=== PATIENT | male | born 1935 | race Caucasian/White ===

== ENCOUNTER 2017-03-26 10:47 | Inpatient (IN) | payer MEDICARE, OTHER ==
[2017-03-26 11:17] LABS: WHITE BLOOD COUNT 6.8 10^3/ul (4.8-10.8)
[2017-03-26 11:17] LABS: ABNORMAL IP MESSAGE 1; HEMATOCRIT 35.2 % (42.0-52.0); HEMOGLOBIN 10.4 g/dl (14.0-18.0); MEAN CORPUSCULAR HEMOGLOBIN 29.4 pg (29.0-33.0); MEAN CORPUSCULAR HGB CONC 29.5 g/dl (32.0-37.0); MEAN CORPUSCULAR VOLUME 99.4 fl (82.0-101.0); MEAN PLATELET VOLUME 10.8 fl (7.4-10.4); PLATELET COUNT 201 10^3/UL (140-415); POSITIVE DIFF @See below; RED BLOOD COUNT 3.54 10^6/ul (4.70-6.10); RED CELL DISTRIBUTION WIDTH 16.3 % (11.5-14.5)
[2017-03-26 11:28] LABS: ADD MAN DIFF? YES
[2017-03-26 11:38] LABS: INR 1.09; PROTIME 14.3 Sec (11.9-14.9); PT RATIO 1.1
[2017-03-26 11:39] LABS: LACTIC ACID 1.9 mmol/L (0.5-2.0)
[2017-03-26 11:42] LABS: ALANINE AMINOTRANSFERASE 25 IU/L (13-69); ALBUMIN 3.7 g/dl (3.3-4.9); ALBUMIN/GLOBULIN RATIO 0.92; ALKALINE PHOSPHATASE 65 IU/L (42-121); ANION GAP 19 (8-16); ASPARTATE AMINO TRANSFERASE 26 IU/L (15-46); BLOOD UREA NITROGEN 57 mg/dl (7-20); CALCIUM 9.6 mg/dl (8.4-10.2); CARBON DIOXIDE 28 mmol/L (21-31); CHLORIDE 106 mmol/L (97-110); CREATININE 3.76 mg/dl (0.61-1.24); GLUCOSE 124 mg/dl (70-220); SODIUM 148 mmol/L (135-144); TOTAL PROTEIN 7.7 g/dl (6.1-8.1)
[2017-03-26] MEDS: SOD CHLORIDE 0.9% 500 ML IV ×2 (11:54→22:40)
[2017-03-26] MEDS: PIPER-TAZO 3.375 GM IV (PMX) 100 ML IVPB (11:59)
[2017-03-26 12:00] LABS: TROPONIN-I < 0.012 ng/ml (0.00-0.12)
[2017-03-26] MEDS ORDERED: ONDANSETRON 4 MG INJ IV ×2 (12:30→15:00)
[2017-03-26] MEDS ORDERED: ACETAMINOPHEN 325 MG TAB PO (12:30)
[2017-03-26] MEDS: VANCOMYCIN 1 GM (PMX) 250 ML IVPB (12:33)
[2017-03-26 12:49] LABS: ANISOCYTOSIS 1+ (0-0); BAND NEUTROPHILS #M 1.9 10^3/ul (0.0-0.6); BAND NEUTROPHILS % (M) 28 % (0-4); ERYTHROBLAST% (NRBC) (M) 1 % (0-0); GIANT THROMBO% (M) 1 % (0-0); LYMPHOCYTES #M 1.3 10^3/ul (0.8-2.9); LYMPHOCYTES % (M) 20 % (15-51); METAMYELOCYTES #M 0.2 10^3/ul (0.0-0.0); METAMYELOCYTES %M 3 % (0-0); MONOCYTE #M 0.2 10^3/ul (0.3-0.9); MONOCYTES % (M) 4 % (0-11); MYELOCYTES #M 0.1 10^3/ul (0.0-0.0); MYELOCYTES % (M) 2 % (0-0); PLATELET ESTIMATE NORMAL; POLYCHROMASIA 2+ (0-0); ROULEAU 1+ (0-0); SEG NEUT #M 3.1 10^3/ul (1.6-7.5); SEGMENTED NEUTROPHILS (M) % 44 % (39-77); SMUDGE%M 1 % (0-0)
[2017-03-26] MEDS ORDERED: VANCOMYCIN IV PER PHARMACY XX (15:00)
[2017-03-26] MEDS ORDERED: ACETAMINOPHEN 650 MG SUPP PR (15:00)
[2017-03-26] MEDS ORDERED: NACL 0.9% 3 ML SYG IV (15:00)
[2017-03-26] MEDS: ALBUTEROL/IPRATROPIUM (NEB) 3 ML AMP HHN ×2 (16:28→21:57)
[2017-03-26] MEDS: LORAZEPAM 2 MG INJ IV (21:07)
[2017-03-26 21:44] LABS: LACTIC ACID 2.2 mmol/L (0.5-2.0)
[2017-03-27] MEDS: ALBUTEROL/IPRATROPIUM (NEB) 3 ML AMP HHN ×6 (01:27→20:48)
[2017-03-27 01:31] LABS: LACTIC ACID 1.3 mmol/L (0.5-2.0)
[2017-03-27] MEDS: PIPER-TAZO 2.25 GM (PMX) 50 ML IVPB ×3 (02:28→21:40)
[2017-03-27 08:03] LABS: ABNORMAL IP MESSAGE 1; HEMATOCRIT 31.9 % (42.0-52.0); HEMOGLOBIN 9.2 g/dl (14.0-18.0); MEAN CORPUSCULAR HEMOGLOBIN 29.6 pg (29.0-33.0); MEAN CORPUSCULAR HGB CONC 28.8 g/dl (32.0-37.0); MEAN CORPUSCULAR VOLUME 102.6 fl (82.0-101.0); MEAN PLATELET VOLUME 11.3 fl (7.4-10.4); NUCLEATED RED BLOOD CELLS% 0.3 /100WBC (0.0-0.0); PLATELET COUNT 176 10^3/UL (140-415); POSITIVE DIFF @See below; RED BLOOD COUNT 3.11 10^6/ul (4.70-6.10); RED CELL DISTRIBUTION WIDTH 16.1 % (11.5-14.5)
[2017-03-27 08:03] LABS: WHITE BLOOD COUNT 10.5 10^3/ul (4.8-10.8)
[2017-03-27 08:26] LABS: ADD MAN DIFF? YES
[2017-03-27 08:35] LABS: PHOSPHORUS 8.7 mg/dl (2.5-4.9)
[2017-03-27 08:35] LABS: MAGNESIUM 2.1 mg/dl (1.7-2.5)
[2017-03-27 08:45] LABS: ALANINE AMINOTRANSFERASE 21 IU/L (13-69); ALBUMIN 3.3 g/dl (3.3-4.9); ALBUMIN/GLOBULIN RATIO 0.82; ALKALINE PHOSPHATASE 42 IU/L (42-121); ASPARTATE AMINO TRANSFERASE 28 IU/L (15-46); BLOOD UREA NITROGEN 72 mg/dl (7-20); CALCIUM 9.1 mg/dl (8.4-10.2); CARBON DIOXIDE 24 mmol/L (21-31); CHLORIDE 108 mmol/L (97-110); GLUCOSE 89 mg/dl (70-220); SODIUM 144 mmol/L (135-144); TOTAL PROTEIN 7.3 g/dl (6.1-8.1)
[2017-03-27 09:01] LABS: ANION GAP 18 (8-16); POTASSIUM 6.2 mmol/L (3.5-5.1)
[2017-03-27 10:00] LABS: ANISOCYTOSIS 2+ (0-0); EOSINOPHILS % (M) 1 % (0-7); ERYTHROBLAST% (NRBC) (M) 3 % (0-0); MONOCYTE #M 0.5 10^3/ul (0.3-0.9); MONOCYTES % (M) 5 % (0-11); PLATELET ESTIMATE NORMAL; POIKILOCYTOSIS 1+ (0-0); REACTIVE LYMPHOCYTES #M 0.3 10^3/ul (0.0-0.0); REACTIVE LYMPHOCYTES% (M) 3 % (0-0)
[2017-03-27 10:26] LABS: BAND NEUTROPHILS #M 3.5 10^3/ul (0.0-0.6); BAND NEUTROPHILS % (M) 34 % (0-4); GIANT THROMBO% (M) 2 % (0-0); LYMPHOCYTES #M 2.3 10^3/ul (0.8-2.9); LYMPHOCYTES % (M) 22 % (15-51); METAMYELOCYTES #M 0.7 10^3/ul (0.0-0.0); METAMYELOCYTES %M 7 % (0-0); MYELOCYTES #M 0.4 10^3/ul (0.0-0.0); MYELOCYTES % (M) 4 % (0-0); POLYCHROMASIA 2+ (0-0); SEG NEUT #M 2.9 10^3/ul (1.6-7.5); SEGMENTED NEUTROPHILS (M) % 24 % (39-77); SMUDGE%M 15 % (0-0)
[2017-03-27 10:48] LABS: AADO2 Arterial 485.8 mmHg (7.0-24.0); Arterial Blood Gas Oxygen Sat 90.5 mmHG (95.0-100.0); Arterial COHb 0.5 % (0.0-3.0); Arterial Fraction of Oxyhgb 89.9 % (93.0-99.0); Arterial HCO3 30.3 mmol/L (22.0-26.0); Arterial MetHb 0.2 % (0.0-1.5); Arterial Total Hemglobin 9.7 g/dl (12.0-18.0); Arterial pCO2 148.9 mmhg (35-45); MODE MASK - NRB; Site LB
[2017-03-27] MEDS: NORepinephrine 8MG/250 ML (PMX 250 ML IV ×3 (11:47→20:26)
[2017-03-27] MEDS: SOD CHLORIDE 0.9% 1,830 ML IV (11:47)
[2017-03-27] MEDS: LIDOCAINE 1% (MPF) 5 ML VIAL SC (12:30)
[2017-03-27 14:10] LABS: LACTIC ACID 1.9 mmol/L (0.5-2.0)
[2017-03-27] MEDS: ALBUMIN HUMAN 25% 50 ML IV (14:30)
[2017-03-27] MEDS ORDERED: PHENYLephrine 20MG IN 250 ML 250 ML (14:53)
[2017-03-27] MEDS ORDERED: ALBUMIN HUMAN 5% 250 ML (14:53)
[2017-03-27] MEDS: SOD CHLORIDE 0.9% 100 ML (15:00)
[2017-03-27] MEDS ORDERED: ALBUMIN HUMAN 25% 100 ML IV (15:00)
[2017-03-27 15:09] LABS: AADO2 Arterial 545.1 mmHg (7.0-24.0); Arterial Base Excess -6.9 mmol/L (-3.0-3); Arterial Blood Gas Oxygen Sat 95.5 mmHG (95.0-100.0); Arterial COHb 0.7 % (0.0-3.0); Arterial Fraction of Oxyhgb 94.5 % (93.0-99.0); Arterial HCO3 23.3 mmol/L (22.0-26.0); Arterial MetHb 0.3 % (0.0-1.5); Arterial Total Hemglobin 9.2 g/dl (12.0-18.0); Arterial pCO2 78.1 mmhg (35-45); Blood Gas IEPAP 15/5; MODE MASK - BIPAP; Site Right Brachial
[2017-03-27] MEDS: ALBUMIN HUMAN 5% 250 ML IV (15:11)
[2017-03-27] MEDS: SOD CHLORIDE 0.9% 1,000 ML IV ×2 (15:11→21:39)
[2017-03-27] MEDS: PHENYLephrine 20MG IN 250 ML 250 ML IV ×3 (15:19→19:40)
[2017-03-27 16:27] LABS: LACTIC ACID 1.6 mmol/L (0.5-2.0)
[2017-03-27 20:09] LABS: HEPATITIS B SURFACE ANTIGEN NEGATIVE (NEGATIVE)
[2017-03-27] MEDS: PHENYLephrine 40 MG in DEXTROSE 5% 496 ML IV ×2 (20:15→22:42)
[2017-03-27 20:32] LABS: HEPATITIS B SURFACE ANTIBODY NEGATIVE (NEGATIVE)
[2017-03-27] MEDS: VASOPRESSIN 60 UNIT in DEXTROSE 5% 57 ML IV (23:30)
[2017-03-28] MEDS: DOPamine-D5W 1.6 MG/ML 250 ML IV ×3 (00:03→17:25)
[2017-03-28] MEDS: PHENYLephrine 40 MG in DEXTROSE 5% 496 ML IV ×3 (00:47→05:47)
[2017-03-28] MEDS: NORepinephrine 8MG/250 ML (PMX 250 ML IV ×5 (00:51→20:02)
[2017-03-28] MEDS: ALBUTEROL/IPRATROPIUM (NEB) 3 ML AMP HHN ×6 (01:36→21:10)
[2017-03-28 05:26] LABS: ADD MAN DIFF? NO
[2017-03-28] MEDS: PIPER-TAZO 2.25 GM (PMX) 50 ML IVPB ×3 (05:29→21:58)
[2017-03-28 05:33] LABS: ABNORMAL IP MESSAGE 1; BASOPHILS % 0.4 % (0.0-2.0); EOSINOPHILS % 0.1 % (0.0-7.0); HEMATOCRIT 28.9 % (42.0-52.0); HEMOGLOBIN 7.9 g/dl (14.0-18.0); LYMPHOCYTES # 0.9 10^3/ul (0.8-2.9); LYMPHOCYTES % 8.9 % (15.0-51.0); MEAN CORPUSCULAR HEMOGLOBIN 29.3 pg (29.0-33.0); MEAN CORPUSCULAR HGB CONC 27.3 g/dl (32.0-37.0); MEAN PLATELET VOLUME 10.6 fl (7.4-10.4); MONOCYTE # 0.8 10^3/ul (0.3-0.9); MONOCYTES % 7.9 % (0.0-11.0); NEUTROPHIL # 8.1 10^3/ul (1.6-7.5); NEUTROPHILS % 81.9 % (39.0-77.0); NUCLEATED RED BLOOD CELLS # 0.3 10^3/ul (0.0-0.0); PLATELET COUNT 159 10^3/UL (140-415); POSITIVE DIFF @See below; RED CELL DISTRIBUTION WIDTH 15.9 % (11.5-14.5)
[2017-03-28 05:33] LABS: WHITE BLOOD COUNT 9.8 10^3/ul (4.8-10.8)
[2017-03-28 05:56] LABS: ANION GAP 11 (8-16); BLOOD UREA NITROGEN 38 mg/dl (7-20); CALCIUM 7.5 mg/dl (8.4-10.2); CARBON DIOXIDE 29 mmol/L (21-31); CHLORIDE 101 mmol/L (97-110); CREATININE 2.84 mg/dl (0.61-1.24); GLUCOSE 152 mg/dl (70-220); MAGNESIUM 1.8 mg/dl (1.7-2.5); SODIUM 136 mmol/L (135-144)
[2017-03-28 05:56] LABS: PHOSPHORUS 6.5 mg/dl (2.5-4.9)
[2017-03-28 06:02] LABS: VANCOMYCIN,RANDOM 8.8 ug/ml
[2017-03-28] MEDS: SOD CHLORIDE 0.9% 1,000 ML IV ×3 (07:16→20:39)
[2017-03-28 09:14] LABS: AADO2 Arterial 483.9 mmHg (7.0-24.0); Allen Test ACCEPTAB; Arterial Base Excess -5.5 mmol/L (-3.0-3); Arterial Blood Gas Oxygen Sat 92.7 mmHG (95.0-100.0); Arterial COHb 1.6 % (0.0-3.0); Arterial Fraction of Oxyhgb 90.8 % (93.0-99.0); Arterial HCO3 28.4 mmol/L (22.0-26.0); Arterial MetHb 0.4 % (0.0-1.5); Arterial Total Hemglobin 7.9 g/dl (12.0-18.0); Arterial pCO2 153.2 mmhg (35-45); Blood Gas IEPAP 20/8; MODE MASK - BIPAP; Site Right Radial
[2017-03-28] MEDS: VANCOMYCIN 1.25 GM in SOD CHLORIDE 0.9% 250 ML IVPB (12:08)
[2017-03-28] MEDS ORDERED: morphine 2 MG INJ IV (15:30)
[2017-03-28] MEDS ORDERED: LORAZEPAM (MDV) 60 MG in DEXTROSE 5% 30 ML IV (23:00)
[2017-03-28] MEDS: morphine (DRIP) 100 MG/100 ML 100 ML IV (23:38)
[2017-03-29] MEDS ORDERED: EPOETIN 3000 UNITS/1 ML INJ (ESRD) SC (17:00)
== END 2017-03-29 01:33 | disposition expired | DRG 871 ==
LOC: ICU 03-27 10:42 → E/R 10:47 → MS4 03-27 13:45 → ICU 03-27 13:54 → MS4 12:08
PROC: 06HM33Z Insertion of Infusion Device into Right Femoral Vein, Percutaneous Approach (ICD-10-PCS; principal; 2017-03-27)
PROC: 02HV33Z Insertion of Infusion Device into Superior Vena Cava, Percutaneous Approach (ICD-10-PCS; 2017-03-27)
PROC: 5A1D70Z Performance of Urinary Filtration, Intermittent, Less than 6 Hours Per Day (ICD-10-PCS; 2017-03-27)
DX: A41.9 Sepsis, unspecified organism (principal); R65.21 Severe sepsis with septic shock; J69.0 Pneumonitis due to inhalation of food and vomit; J96.01 Acute respiratory failure with hypoxia; G92 Toxic encephalopathy; E87.2 Acidosis; I13.2 Hypertensive heart and chronic kidney disease with heart failure and with stage 5 chronic kidney disease, or end stage renal disease; R13.10 Dysphagia, unspecified; N18.6 End stage renal disease; E87.70 Fluid overload, unspecified; E87.5 Hyperkalemia; I50.9 Heart failure, unspecified; D63.1 Anemia in chronic kidney disease; F03.90 Unspecified dementia, unspecified severity, without behavioral disturbance, psychotic disturbance, mood disturbance, and anxiety; Z51.5 Encounter for palliative care; Z66 Do not resuscitate; Z74.01 Bed confinement status; Z99.2 Dependence on renal dialysis
CPT/HCPCS: 36415; 36569; 36600; 71045; 76937; 80048; 80053; 80202; 82803; 82962; 83605; 83735; 84100; 84132; 84484; 85025; 85610; 85730; 86706; 87040; 87340; 90935; 93005; 94640; 94660; 94664; 96374; 96375; 99285-25